=== PATIENT | male | born 1965 ===

== ENCOUNTER 2017-11-18 09:53 | Inpatient (IN) ==
[2017-11-18] MEDS ORDERED: Propofol 1000 mg/100 ml Inj 1,000 MG/100 ML BOTTLE ONE (09:56)
[2017-11-18] MEDS: Propofol 1000 mg/100 ml Inj 1,000 MG/100 ML BOTTLE IV.CONT PRN ×4 (10:00→23:07)
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
[2017-11-18] MEDS ORDERED: Diphtheria/Tetanus/Pertussis Vaccine Inj 0.5 ML Syringe IM ONE (10:25)
[2017-11-18 10:27] LABS: Baso % (Auto) 0.4 % (0.0-2.0); Eos # (Auto) 0.1 th/mm3 (0.0-0.4); Eos % (Auto) 1.1 % (0.0-4.0); Hematocrit 42.1 % (39.0-51.0); Hemoglobin 14.5 gm/dL (13.0-17.0); Lymph # (Auto) 0.8 th/mm3 (1.0-4.8); Mean Corpuscular HGB Conc 34.3 % (32.0-36.0); Mean Corpuscular Hemoglobin 32.9 pg (27.0-34.0); Mean Platelet Volume 9.1 fL (7.0-11.0); Mono # (Auto) 0.5 th/mm3 (0.0-0.9); Mono % (Auto) 3.5 % (0.0-8.0); Neut # (Auto) 11.5 th/mm3 (1.8-7.7); Platelet Count 114 th/mm3 (150-450); Red Blood Count 4.39 mil/mm3 (4.50-5.90)
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
[2017-11-18 10:43] LABS: Prothrombin Time 10.1 sec (9.8-11.6)
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
[2017-11-18 10:49] LABS: Calcium 8.5 mg/dL (8.5-10.1); Potassium 3.7 meq/L (3.5-5.1)
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
[2017-11-18] MEDS ORDERED: Bisacodyl 10 MG Supp RECTAL PRN (10:58)
[2017-11-18] MEDS ORDERED: Post-op Orders (for Pharmacy) OTHER ONE (10:58)
[2017-11-18] MEDS ORDERED: Naloxone Inj 0.4 MG/ML Vial IV.PUSH PRN (10:58)
[2017-11-18 11:03] LABS: Platelet Morphology Normal (Normal)
[2017-11-18 11:16] VITALS: O2SAT 100
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
[2017-11-18] MEDS: Sod Chloride 0.9% Inj 1,000 ML IV.CONT SCH ×2 (11:27→20:50)
[2017-11-18] MEDS: fentaNYL 10 mcg/mL Premix Drip 2,500 MCG/250 ML BAG IV.SIG PRN (11:39)
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
[2017-11-18] MEDS: Oral Hygiene Kit OROPHARYNG SCH ×2 (16:00→23:06)
[2017-11-18] MEDS ORDERED: Gadobutrol PF 7.5 MMOL/7.5 ML Vial (for RAD) IV.SIG ONE (17:44)
[2017-11-18 17:57] LABS: ABG Base Excess 1.1 mmol/L (-2-2); ABG PCO2 38 mmHg (38-42); ABG PO2 225 mmHg (61-120)
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
[2017-11-18] MEDS: Chlorhexidine 0.12% Oral Kit 15 ML UDC OROPHARYNG SCH (20:50)
[2017-11-18] MEDS: Senna/Docusate Sodium 8.6/50 MG Tablet PO SCH (20:50)
[2017-11-19] MEDS: Propofol 1000 mg/100 ml Inj 1,000 MG/100 ML BOTTLE IV.CONT PRN ×4 (04:07→19:04)
[2017-11-19] MEDS: fentaNYL 10 mcg/mL Premix Drip 2,500 MCG/250 ML BAG IV.SIG PRN ×2 (04:07→20:09)
[2017-11-19] MEDS: Oral Hygiene Kit OROPHARYNG SCH ×3 (04:07→16:01)
[2017-11-19 05:37] LABS: ABG Base Excess 1.6 mmol/L (-2-2); ABG PCO2 54 mmHg (38-42); ABG PO2 93 mmHg (61-120)
[2017-11-19 06:27] LABS: Baso % (Auto) 0.3 % (0.0-2.0); Eos # (Auto) 0.4 th/mm3 (0.0-0.4); Hematocrit 38.4 % (39.0-51.0); Hemoglobin 12.9 gm/dL (13.0-17.0); Lymph # (Auto) 1.2 th/mm3 (1.0-4.8); Lymph % (Auto) 12.6 % (9.0-44.0); Mean Corpuscular HGB Conc 33.7 % (32.0-36.0); Mean Corpuscular Hemoglobin 33.4 pg (27.0-34.0); Mean Platelet Volume 8.6 fL (7.0-11.0); Mono # (Auto) 0.4 th/mm3 (0.0-0.9); Mono % (Auto) 4.6 % (0.0-8.0); Neut # (Auto) 7.5 th/mm3 (1.8-7.7); Neut % (Auto) 78.5 % (16.0-70.0); Platelet Count 166 th/mm3 (150-450); Red Blood Count 3.88 mil/mm3 (4.50-5.90); Red Cell Distribution Width 13.3 % (11.6-17.2); White Blood Count 9.6 th/mm3 (4.0-11.0)
[2017-11-19] MEDS: Sod Chloride 0.9% Inj 1,000 ML IV.CONT SCH ×2 (06:29→16:01)
[2017-11-19 06:39] LABS: Anion Gap 9 meq/L (5-15); Blood Urea Nitrogen 13 mg/dL (7-18); Calcium 8.2 mg/dL (8.5-10.1); Carbon Dioxide 25.2 meq/L (21.0-32.0); Chloride 110 meq/L (98-107); Glomerular Filtration Rate Greater Than 89 mL/min (>89); Glucose,Random 85 mg/dL (74-106); Potassium 3.6 meq/L (3.5-5.1); Sodium 144 meq/L (136-145)
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
--- NOTE | 2017-11-19 07:50 | XR ---
EXAM DATE: 11/19/2017 12:00 AM EDT AGE/SEX: 52 years / Male INDICATIONS: Shortness of breath. CLINICAL DATA: This is the patient's subsequent encounter. Patient reports that signs and symptoms h ave been present for 2 days and indicates a pain score of Nonresponsive. MEDICAL/SURGICAL HISTORY: Non-responsive. Non-responsive. COMPARISON: [facility], CHEST 1V SINGLE AP, 11/18/2017. . FINDINGS: The cervicothoracic junction is omitted from this image. Stable ETT. Interval and NGT with tip beyond the GE junction. There is a catheter along the right hemithorax extending beyond the image and there fore likely a portion of the NGT rather than interval chest tube. Trace right apical pneumothorax wit h bilateral cervicothoracic subcutaneous emphysema. Cardiomediastinal contours are within normal limi ts. Remainder of the exam is unchanged. CONCLUSION: 1. Stable ETT with NGT beyond the GE junction. 2. Trace right apical pneumothorax with persistent subcutaneous emphysema in the cervicothoracic reg ion. Electronically signed by: Morales Etienne MD 11/19/2017 7:49 AM EDT
[2017-11-19 07:56] LABS: Magnesium 1.9 mg/dL (1.5-2.5)
[2017-11-19] MEDS: Senna/Docusate Sodium 8.6/50 MG Tablet PO SCH ×2 (09:06→20:07)
[2017-11-19] MEDS: Chlorhexidine 0.12% Oral Kit 15 ML UDC OROPHARYNG SCH ×2 (09:07→20:10)
[2017-11-19] MEDS ORDERED: Enoxaparin Inj 40 MG/0.4 ML Syringe SQ SCH (10:00)
[2017-11-19 11:51] LABS: ABG Base Excess 0.6 mmol/L (-2-2); ABG PCO2 34 mmHg (38-42); ABG PO2 93 mmHg (61-120)
--- NOTE | 2017-11-19 13:12 | ECHRPT ---
Indication: Shortness of breath CONCLUSIONS The left ventricule is poorly visualized - only apical views provide any visualization - LVEF probab ly normal but not all LV segments visualized. Wall thickness is normal. Normal left ventricular size. There is mild tricuspid valve regurgitation. The estimated pulmonary arterial pressure is 32.8 mmHg. The inferior vena cava is normal in size and collapses with inspiration. BP: / HR: 69 Rhythm: Sinus MEASUREMENTS (Male / Female) Normal Values Technical Quality: Poor 2D ECHO LV Diastolic Diameter PLAX 3.0 cm 4.2 - 5.9 / 3.9 - 5.3 cm LV Systolic Diameter PLAX 2.5 cm IVS Diastolic Thickness 0.9 cm 0.6 - 1.0 / 0.6 - 0.9 cm LVPW Diastolic Thickness 0.9 cm 0.6 - 1.0 / 0.6 - 0.9 cm LV Relative Wall Thickness 0.6 LVOT Diameter 2.0 cm M-MODE Aortic Root Diameter MM 3.0 cm LA Systolic Diameter MM 2.1 cm LA Ao Ratio MM 0.7 AV Cusp Separation MM 2.1 cm DOPPLER AV Peak Velocity 147.0 cm/s AV Peak Gradient 8.6 mmHg LVOT Peak Velocity 111.0 cm/s LVOT Peak Gradient 4.9 mmHg AV Area Cont Eq pk 2.4 cm Mitral E Point Velocity 61.2 cm/s Mitral A Point Velocity 55.8 cm/s Mitral E to A Ratio 1.1 LV E' Lateral Velocity 16.0 cm/s Mitral E to LV E' Lateral Ratio 3.8 LV E' Septal Velocity 6.4 cm/s Mitral E to LV E' Septal Ratio 9.5 TR Peak Velocity 239.0 cm/s TR Peak Gradient 22.8 mmHg Right Atrial Pressure 10.0 mmHg Pulmonary Artery Systolic Pressu 32.8 mmHg Right Ventricular Systolic Press 32.8 mmHg PV Peak Velocity 107.0 cm/s PV Peak Gradient 4.6 mmHg FINDINGS LEFT VENTRICLE The left ventricule is poorly visualized - only apical views provide any visualization - LVEF probab ly normal but not all LV segments visualized. Wall thickness is normal. Normal left ventricular size. RIGHT VENTRICLE Normal right ventricular size and systolic function. LEFT ATRIUM The left atrial size is normal. RIGHT ATRIUM The right atrial size is normal. ATRIAL SEPTUM Normal atrial septal thickness without atrial level shunting by limited color doppler interrogation. AORTA The aortic root and proximal ascending aorta are normal in size on limited imaging. MITRAL VALVE Structurally normal mitral valve. No mitral valve stenosis or regurgitation. AORTIC VALVE Trileaflet aortic valve. No aortic valve stenosis or regurgitation. TRICUSPID VALVE There is mild tricuspid valve regurgitation. The estimated pulmonary arterial pressure is 32.8 mmHg. PULMONARY VALVE No pulmonary valve regurgitation or stenosis. VESSELS The inferior vena cava is normal in size and collapses with inspiration. PERICARDIUM No pericardial effusion. Dylan Luna MD (Electronically Signed) Final Date:19 November 2017 13:10
--- NOTE | 2017-11-19 14:47 | ECG ---
Date Performed: 11/19/2017 Time Performed: 09:57:50 PTAGE: 52 years EKG: Sinus rhythm Normal ECG NO PREVIOUS TRACING DOCTOR: Josemanuel Pate Interpretating Date/Time 11/19/2017 14:44:06
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
[2017-11-20] MEDS: Oral Hygiene Kit OROPHARYNG SCH (00:13)
[2017-11-20] MEDS: Propofol 1000 mg/100 ml Inj 1,000 MG/100 ML BOTTLE IV.CONT PRN (01:12)
[2017-11-20 03:38] VITALS: BP 111/61; PULSE 84; RESP 16; TEMP 100.9
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
== END 2017-11-20 02:15 | disposition short-term general hospital (02) ==
LOC: NEPI 09:53 → NEDA 10:11 → EDBD 10:11 → N03 10:41
PROVIDERS: ADMIT Surgery; ATTEND Surgery

== ENCOUNTER 2017-12-05 14:30 | Inpatient (IN) ==
[2017-12-05] MEDS ORDERED: Acetaminophen 325 MG Tablet PO PRN (23:39)
[2017-12-05] MEDS ORDERED: Docusate Sodium 100 MG Capsule PO PRN (23:44)
[2017-12-06] MEDS: Sod Chloride 0.9% Inj 1,000 ML IV.SIG SCH ×2 (00:12→21:27)
[2017-12-06] MEDS: RESP: Albuterol Concentrated 2.5 MG/0.5 ML Neb NEB SCH ×6 (00:57→20:15)
[2017-12-06] MEDS: Enoxaparin Inj 40 MG/0.4 ML Syringe SQ SCH (00:58)
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
[2017-12-06] MEDS: Famotidine 20 MG Tablet PO SCH ×2 (12:21→21:29)
[2017-12-06] MEDS: Propranolol 10 MG Tablet PO SCH ×3 (12:21→18:49)
[2017-12-06] MEDS: Gabapentin 300 MG Capsule PO SCH ×3 (12:21→18:49)
[2017-12-06] MEDS: Chlorhexidine Gluconate 0.12% Liq 15 ML UDC SWISH-SPIT SCH ×4 (12:22→21:29)
[2017-12-06] MEDS: Scopalamine 1.5 MG Patch T-DERMAL SCH (12:39)
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
[2017-12-07] MEDS: Enoxaparin Inj 40 MG/0.4 ML Syringe SQ SCH ×2 (00:30→23:49)
[2017-12-07] MEDS: RESP: Albuterol Concentrated 2.5 MG/0.5 ML Neb NEB SCH ×7 (01:06→23:27)
[2017-12-07 04:16] LABS: Baso # (Auto) 0.1 th/mm3 (0.0-0.2); Baso % (Auto) 1.1 % (0.0-2.0); Eos # (Auto) 0.2 th/mm3 (0.0-0.4); Eos % (Auto) 3.4 % (0.0-4.0); Hematocrit 29.4 % (39.0-51.0); Hemoglobin 10.5 gm/dL (13.0-17.0); Lymph # (Auto) 1.7 th/mm3 (1.0-4.8); Lymph % (Auto) 24.2 % (9.0-44.0); Mean Corpuscular HGB Conc 35.6 % (32.0-36.0); Mean Corpuscular Hemoglobin 33.9 pg (27.0-34.0); Mean Corpuscular Volume 95.2 fL (80.0-100.0); Mean Platelet Volume 7.2 fL (7.0-11.0); Mono # (Auto) 0.7 th/mm3 (0.0-0.9); Mono % (Auto) 10.2 % (0.0-8.0); Neut # (Auto) 4.3 th/mm3 (1.8-7.7); Neut % (Auto) 61.1 % (16.0-70.0); Platelet Count 1033 th/mm3 (150-450); Red Blood Count 3.09 mil/mm3 (4.50-5.90); Red Cell Distribution Width 13.4 % (11.6-17.2); White Blood Count 7.1 th/mm3 (4.0-11.0)
[2017-12-07 04:48] LABS: Anion Gap 9 meq/L (5-15); Blood Urea Nitrogen 18 mg/dL (7-18); Calcium 8.5 mg/dL (8.5-10.1); Carbon Dioxide 26.5 meq/L (21.0-32.0); Chloride 108 meq/L (98-107); Glomerular Filtration Rate Greater Than 89 mL/min (>89); Glucose,Random 105 mg/dL (74-106); Potassium 3.3 meq/L (3.5-5.1); Sodium 143 meq/L (136-145)
--- NOTE | 2017-12-07 06:09 | XR ---
EXAM DATE: 12/07/2017 5:32 AM EDT AGE/SEX: 52 years / Male INDICATIONS: Shortness of breath. CLINICAL DATA: This is the patient's subsequent encounter. Patient reports that signs and symptoms h ave been present for 2 days and indicates a pain score of Nonresponsive. MEDICAL/SURGICAL HISTORY: None. . Tracheostomy. Dobbhoff placement. COMPARISON: [facility] [place] 1[place] SINGLE AP, 11/19/2017. . FINDINGS: Interval development of patchy nonconsolidative infiltrates in both lower lungs. The upper lungs are clear. No evidence of pneumothorax. Tracheostomy in place. Enteric tube traverses the [id number]. Both hemidiaphragms well delineated. CONCLUSION: Interval development of bilateral lower lung nonconsolidative infiltrates. Electronically signed by: Cirilo Valdivia MD 12/07/2017 6:08 AM EDT
[2017-12-07] MEDS: Sod Chloride 0.9% Inj 1,000 ML IV.SIG SCH ×2 (06:13→19:20)
[2017-12-07] MEDS ORDERED: Potassium Chloride 25 MEQ Effervescent Tablet PO ONE (06:50)
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
[2017-12-07] MEDS: Famotidine 20 MG Tablet PO SCH ×2 (10:46→20:38)
[2017-12-07] MEDS: Propranolol 10 MG Tablet PO SCH ×3 (10:46→18:34)
[2017-12-07] MEDS: Docusate Sodium 100 MG Capsule PO SCH ×2 (10:46→20:38)
[2017-12-07] MEDS: Gabapentin 300 MG Capsule PO SCH ×3 (10:46→18:34)
[2017-12-07] MEDS: Chlorhexidine Gluconate 0.12% Liq 15 ML UDC SWISH-SPIT SCH ×4 (10:47→20:38)
[2017-12-08] MEDS: RESP: Albuterol Concentrated 2.5 MG/0.5 ML Neb NEB SCH ×6 (03:24→23:57)
[2017-12-08] MEDS: Sod Chloride 0.9% Inj 1,000 ML IV.SIG SCH ×3 (07:13→19:26)
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
[2017-12-08] MEDS: Gabapentin 300 MG Capsule PO SCH ×3 (10:12→18:45)
[2017-12-08] MEDS: Famotidine 20 MG Tablet PO SCH ×2 (10:13→21:15)
[2017-12-08] MEDS: Docusate Sodium 100 MG Capsule PO SCH ×2 (10:15→21:29)
[2017-12-08] MEDS: Propranolol 10 MG Tablet PO SCH ×3 (10:15→18:45)
[2017-12-08] MEDS: Chlorhexidine Gluconate 0.12% Liq 15 ML UDC SWISH-SPIT SCH ×4 (10:59→21:16)
[2017-12-09] MEDS: Enoxaparin Inj 40 MG/0.4 ML Syringe SQ SCH (00:45)
[2017-12-09] MEDS: RESP: Albuterol Concentrated 2.5 MG/0.5 ML Neb NEB SCH ×5 (03:26→21:42)
[2017-12-09] MEDS: Scopalamine 1.5 MG Patch T-DERMAL SCH (08:39)
[2017-12-09] MEDS: Chlorhexidine Gluconate 0.12% Liq 15 ML UDC SWISH-SPIT SCH ×4 (08:39→21:16)
[2017-12-09] MEDS: Famotidine 20 MG Tablet PO SCH ×2 (08:40→21:15)
[2017-12-09] MEDS: Docusate Sodium 100 MG Capsule PO SCH ×2 (08:40→21:15)
[2017-12-09] MEDS: Propranolol 10 MG Tablet PO SCH ×3 (08:41→17:08)
[2017-12-09] MEDS: Gabapentin 300 MG Capsule PO SCH ×3 (08:41→17:08)
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
[2017-12-09] MEDS: Sod Chloride 0.9% Inj 1,000 ML IV.SIG SCH (11:23)
[2017-12-10] MEDS: Enoxaparin Inj 40 MG/0.4 ML Syringe SQ SCH
[2017-12-10] MEDS: Sod Chloride 0.9% Inj 1,000 ML IV.SIG SCH ×2 (00:01→03:12)
[2017-12-10] MEDS: RESP: Albuterol Concentrated 2.5 MG/0.5 ML Neb NEB SCH ×6 (01:25→21:39)
[2017-12-10] MEDS: Docusate Sodium 100 MG Capsule PO SCH ×2 (09:21→22:11)
[2017-12-10] MEDS: Chlorhexidine Gluconate 0.12% Liq 15 ML UDC SWISH-SPIT SCH ×4 (09:22→22:11)
[2017-12-10] MEDS: Propranolol 10 MG Tablet PO SCH ×3 (09:22→18:49)
[2017-12-10] MEDS: Gabapentin 300 MG Capsule PO SCH ×3 (09:22→18:49)
[2017-12-10] MEDS: Famotidine 20 MG Tablet PO SCH ×2 (09:22→22:11)
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
[2017-12-11] MEDS: Enoxaparin Inj 40 MG/0.4 ML Syringe SQ SCH ×2 (00:31→23:24)
[2017-12-11] MEDS: RESP: Albuterol Concentrated 2.5 MG/0.5 ML Neb NEB SCH ×6 (01:18→20:18)
[2017-12-11] MEDS: Chlorhexidine Gluconate 0.12% Liq 15 ML UDC SWISH-SPIT SCH ×4 (08:38→20:31)
[2017-12-11] MEDS: Docusate Sodium 100 MG Capsule PO SCH ×2 (08:38→20:31)
[2017-12-11] MEDS: Gabapentin 300 MG Capsule PO SCH ×4 (08:38→16:59)
[2017-12-11] MEDS: Propranolol 10 MG Tablet PO SCH ×4 (08:38→16:59)
[2017-12-11] MEDS: Famotidine 20 MG Tablet PO SCH ×2 (08:38→21:18)
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
[2017-12-12] MEDS: RESP: Albuterol Concentrated 2.5 MG/0.5 ML Neb NEB SCH ×7 (01:23→21:11)
[2017-12-12 04:02] LABS: Baso % (Auto) 0.2 % (0.0-2.0); Eos % (Auto) 13.9 % (0.0-4.0); Hematocrit 36.1 % (39.0-51.0); Hemoglobin 12.3 gm/dL (13.0-17.0); Lymph % (Auto) 28.2 % (9.0-44.0); Mean Corpuscular HGB Conc 34.1 % (32.0-36.0); Mean Corpuscular Hemoglobin 33.2 pg (27.0-34.0); Mean Corpuscular Volume 97.2 fL (80.0-100.0); Mean Platelet Volume 7.3 fL (7.0-11.0); Mono # (Auto) 0.5 th/mm3 (0.0-0.9); Mono % (Auto) 7.3 % (0.0-8.0); Neut # (Auto) 3.6 th/mm3 (1.8-7.7); Neut % (Auto) 50.4 % (16.0-70.0); Platelet Count 662 th/mm3 (150-450); Red Blood Count 3.72 mil/mm3 (4.50-5.90); Red Cell Distribution Width 13.8 % (11.6-17.2); White Blood Count 7.1 th/mm3 (4.0-11.0)
[2017-12-12 04:29] LABS: Anion Gap 7 meq/L (5-15); Blood Urea Nitrogen 16 mg/dL (7-18); Calcium 9.3 mg/dL (8.5-10.1); Chloride 102 meq/L (98-107); Glomerular Filtration Rate Greater Than 89 mL/min (>89); Glucose,Random 89 mg/dL (74-106); Sodium 142 meq/L (136-145)
--- NOTE | 2017-12-12 06:57 | XR ---
EXAM DATE: 12/12/2017 6:54 AM EDT AGE/SEX: 52 years / Male INDICATIONS: Follow up trauma, short of breath, thyroid cartilage fracture CLINICAL DATA: This is the patient's subsequent encounter. Patient reports that signs and symptoms h ave been present for 3 weeks and indicates a pain score of Nonresponsive. MEDICAL/SURGICAL HISTORY: . thyroid cartilage fracture . tracheostomy COMPARISON: C, CHEST 1V SINGLE AP, 12/07/2017. . FINDINGS: Mild bibasilar parenchymal opacities persist and not significantly changed. No pleural effusion demon strated. No pneumothorax. Heart size stable, within normal limits. Tracheostomy tube again seen. There is a Dobbhoff feeding tube with tip in the upper stomach. CONCLUSION: 1. No significant change mild patchy consolidation of both bases. 2. Dobbhoff feeding tube tip is in the upper stomach. Electronically signed by: Mayank Martinez MD 12/12/2017 6:55 AM EDT
[2017-12-12] MEDS: Gabapentin 300 MG Capsule PO SCH ×3 (09:21→17:10)
[2017-12-12] MEDS: Scopalamine 1.5 MG Patch T-DERMAL SCH (09:21)
[2017-12-12] MEDS: Docusate Sodium 100 MG Capsule PO SCH ×2 (09:22→22:14)
[2017-12-12] MEDS: Famotidine 20 MG Tablet PO SCH ×2 (09:22→21:32)
[2017-12-12] MEDS: Propranolol 10 MG Tablet PO SCH ×3 (09:22→17:10)
[2017-12-12] MEDS: Chlorhexidine Gluconate 0.12% Liq 15 ML UDC SWISH-SPIT SCH ×4 (10:36→21:32)
[2017-12-12] MEDS ORDERED: Influenza (Quadrivalent) Vaccine 0.5 ML Syringe IM ONE (12:00)
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
[2017-12-12] MEDS: Enoxaparin Inj 40 MG/0.4 ML Syringe SQ SCH (23:25)
[2017-12-13] MEDS: RESP: Albuterol Concentrated 2.5 MG/0.5 ML Neb NEB SCH ×7 (01:37→23:45)
[2017-12-13] MEDS: Gabapentin 300 MG Capsule PO SCH ×3 (09:33→17:55)
[2017-12-13] MEDS: Propranolol 10 MG Tablet PO SCH ×3 (09:33→17:55)
[2017-12-13] MEDS: Docusate Sodium 100 MG Capsule PO SCH ×2 (09:33→21:25)
[2017-12-13] MEDS: Chlorhexidine Gluconate 0.12% Liq 15 ML UDC SWISH-SPIT SCH ×4 (09:33→21:25)
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
[2017-12-13] MEDS: Famotidine 20 MG Tablet PO SCH ×2 (16:40→21:24)
[2017-12-13] MEDS: Enoxaparin Inj 40 MG/0.4 ML Syringe SQ SCH (23:50)
[2017-12-14] MEDS: RESP: Albuterol Concentrated 2.5 MG/0.5 ML Neb NEB SCH ×5 (03:43→20:41)
[2017-12-14] MEDS: Famotidine 20 MG Tablet PO SCH ×2 (08:55→22:26)
[2017-12-14] MEDS: Propranolol 10 MG Tablet PO SCH ×3 (08:55→18:59)
[2017-12-14] MEDS: Gabapentin 300 MG Capsule PO SCH ×3 (08:55→18:59)
[2017-12-14] MEDS: Docusate Sodium 100 MG Capsule PO SCH ×2 (08:55→22:26)
[2017-12-14] MEDS: Chlorhexidine Gluconate 0.12% Liq 15 ML UDC SWISH-SPIT SCH ×4 (08:55→22:26)
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
[2017-12-14] MEDS: Enoxaparin Inj 40 MG/0.4 ML Syringe SQ SCH (23:51)
[2017-12-15] MEDS: RESP: Albuterol Concentrated 2.5 MG/0.5 ML Neb NEB SCH ×6 (00:42→19:57)
[2017-12-15] MEDS: Gabapentin 300 MG Capsule PO SCH ×3 (09:53→18:15)
[2017-12-15] MEDS: Propranolol 10 MG Tablet PO SCH ×3 (09:53→18:15)
[2017-12-15] MEDS: Famotidine 20 MG Tablet PO SCH ×2 (09:53→20:53)
[2017-12-15] MEDS: Chlorhexidine Gluconate 0.12% Liq 15 ML UDC SWISH-SPIT SCH ×4 (09:59→20:53)
[2017-12-15] MEDS: Docusate Sodium 100 MG Capsule PO SCH ×2 (10:00→20:53)
[2017-12-15] MEDS: Scopalamine 1.5 MG Patch T-DERMAL SCH (11:52)
[2017-12-15] MEDS: Megestrol Acetate Liq 400 MG/10 ML UDC PO SCH (14:42)
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
[2017-12-16] MEDS: Enoxaparin Inj 40 MG/0.4 ML Syringe SQ SCH (00:05)
[2017-12-16] MEDS: RESP: Albuterol Concentrated 2.5 MG/0.5 ML Neb NEB SCH ×6 (01:16→20:58)
[2017-12-16] MEDS: Docusate Sodium 100 MG Capsule PO SCH ×2 (08:50→21:35)
[2017-12-16] MEDS: Gabapentin 300 MG Capsule PO SCH ×3 (08:50→17:30)
[2017-12-16] MEDS: Famotidine 20 MG Tablet PO SCH ×2 (08:50→21:35)
[2017-12-16] MEDS: Propranolol 10 MG Tablet PO SCH ×3 (08:52→17:30)
[2017-12-16] MEDS: Megestrol Acetate Liq 400 MG/10 ML UDC PO SCH (08:52)
[2017-12-16] MEDS: Chlorhexidine Gluconate 0.12% Liq 15 ML UDC SWISH-SPIT SCH ×4 (09:01→21:35)
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
[2017-12-17] MEDS: Enoxaparin Inj 40 MG/0.4 ML Syringe SQ SCH ×2 (00:26→23:50)
[2017-12-17] MEDS: RESP: Albuterol Concentrated 2.5 MG/0.5 ML Neb NEB SCH ×5 (03:31→20:27)
[2017-12-17] MEDS: Chlorhexidine Gluconate 0.12% Liq 15 ML UDC SWISH-SPIT SCH ×4 (08:43→21:35)
[2017-12-17] MEDS: Famotidine 20 MG Tablet PO SCH ×2 (08:43→21:35)
[2017-12-17] MEDS: Docusate Sodium 100 MG Capsule PO SCH ×2 (08:44→21:35)
[2017-12-17] MEDS: Megestrol Acetate Liq 400 MG/10 ML UDC PO SCH (08:44)
[2017-12-17] MEDS: Propranolol 10 MG Tablet PO SCH ×3 (08:44→17:24)
[2017-12-17] MEDS: Gabapentin 300 MG Capsule PO SCH ×3 (08:44→17:24)
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
[2017-12-18] MEDS: RESP: Albuterol Concentrated 2.5 MG/0.5 ML Neb NEB SCH ×4 (01:20→21:05)
[2017-12-18] MEDS: Propranolol 10 MG Tablet PO SCH ×3 (09:05→17:17)
[2017-12-18] MEDS: Docusate Sodium 100 MG Capsule PO SCH ×2 (09:05→20:42)
[2017-12-18] MEDS: Megestrol Acetate Liq 400 MG/10 ML UDC PO SCH (09:05)
[2017-12-18] MEDS: Gabapentin 300 MG Capsule PO SCH ×3 (09:05→17:17)
[2017-12-18] MEDS: Famotidine 20 MG Tablet PO SCH ×2 (09:05→20:42)
[2017-12-18] MEDS: Scopalamine 1.5 MG Patch T-DERMAL SCH (09:06)
[2017-12-18] MEDS: Chlorhexidine Gluconate 0.12% Liq 15 ML UDC SWISH-SPIT SCH ×4 (09:09→20:43)
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
[2017-12-18] MEDS: Enoxaparin Inj 40 MG/0.4 ML Syringe SQ SCH (23:50)
[2017-12-19] MEDS: RESP: Albuterol Concentrated 2.5 MG/0.5 ML Neb NEB SCH ×6 (00:51→21:26)
[2017-12-19] MEDS: Chlorhexidine Gluconate 0.12% Liq 15 ML UDC SWISH-SPIT SCH ×4 (08:48→21:04)
[2017-12-19] MEDS: Megestrol Acetate Liq 400 MG/10 ML UDC PO SCH (08:48)
[2017-12-19] MEDS: Gabapentin 300 MG Capsule PO SCH ×3 (08:48→17:32)
[2017-12-19] MEDS: Propranolol 10 MG Tablet PO SCH ×3 (08:48→17:29)
[2017-12-19] MEDS: Docusate Sodium 100 MG Capsule PO SCH ×2 (08:48→21:04)
[2017-12-19] MEDS: Famotidine 20 MG Tablet PO SCH ×2 (08:48→21:04)
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
[2017-12-20] MEDS: Enoxaparin Inj 40 MG/0.4 ML Syringe SQ SCH (00:14)
[2017-12-20] MEDS: RESP: Albuterol Concentrated 2.5 MG/0.5 ML Neb NEB SCH ×7 (03:31→15:30)
[2017-12-20 04:31] LABS: Baso # (Auto) 0.1 th/mm3 (0.0-0.2); Baso % (Auto) 1.2 % (0.0-2.0); Eos # (Auto) 0.6 th/mm3 (0.0-0.4); Eos % (Auto) 7.8 % (0.0-4.0); Hematocrit 36.9 % (39.0-51.0); Hemoglobin 12.9 gm/dL (13.0-17.0); Lymph # (Auto) 2.3 th/mm3 (1.0-4.8); Lymph % (Auto) 27.6 % (9.0-44.0); Mean Corpuscular HGB Conc 35.1 % (32.0-36.0); Mean Corpuscular Hemoglobin 33.4 pg (27.0-34.0); Mean Corpuscular Volume 95.2 fL (80.0-100.0); Mean Platelet Volume 9.3 fL (7.0-11.0); Mono # (Auto) 0.5 th/mm3 (0.0-0.9); Mono % (Auto) 6.4 % (0.0-8.0); Neut # (Auto) 4.7 th/mm3 (1.8-7.7); Platelet Count 303 th/mm3 (150-450); Red Blood Count 3.88 mil/mm3 (4.50-5.90); Red Cell Distribution Width 12.9 % (11.6-17.2); White Blood Count 8.2 th/mm3 (4.0-11.0)
[2017-12-20 05:02] LABS: Anion Gap 7 meq/L (5-15); Blood Urea Nitrogen 13 mg/dL (7-18); Calcium 9.3 mg/dL (8.5-10.1); Carbon Dioxide 30.2 meq/L (21.0-32.0); Chloride 106 meq/L (98-107); Glomerular Filtration Rate Greater Than 89 mL/min (>89); Glucose,Random 116 mg/dL (74-106); Potassium 3.8 meq/L (3.5-5.1); Sodium 143 meq/L (136-145)
[2017-12-20 08:43] VITALS: TEMP 98.2
[2017-12-20] MEDS: Propranolol 10 MG Tablet PO SCH ×2 (09:31→15:21)
[2017-12-20] MEDS: Docusate Sodium 100 MG Capsule PO SCH (09:31)
[2017-12-20] MEDS: Famotidine 20 MG Tablet PO SCH (09:31)
[2017-12-20] MEDS: Megestrol Acetate Liq 400 MG/10 ML UDC PO SCH (09:32)
[2017-12-20] MEDS: Chlorhexidine Gluconate 0.12% Liq 15 ML UDC SWISH-SPIT SCH ×2 (09:32→15:21)
[2017-12-20] MEDS: Gabapentin 300 MG Capsule PO SCH ×2 (09:33→15:21)
[2017-12-20 12:04] VITALS: BP 106/54; O2SAT 97
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
[2017-12-20 15:30] VITALS: PULSE 73; RESP 16
== END 2017-12-20 16:38 | disposition home or self-care (01) ==
LOC: N07 22:00
PROVIDERS: ADMIT Surgery; ATTEND Surgery